=== PATIENT | female | born 1995 | race African-American/Black ===

== ENCOUNTER 2017-10-19 11:36 | Inpatient (IN) | payer MEDICAID ==
[2017-10-19] VITALS (8 sets, daily range): BP systolic 92–126; BP diastolic 44–70
[~2017-10-19] VITALS: Ht 175.3 cm; Wt 90.7 kg
--- NOTE | 2017-10-19 11:43 | Emergency Room Report ---
History of Present Illness General Chief Complaint: To Be Triaged Source: Family Member Present Illness HPI The ER staff was called to the ambulance bay patient was reported to be having seizure in the car that she was brought in The boyfriend reports of the patient for the last several days has been complaining of lower abdominal pain Was seen by primary physician and there was no obvious diagnosis This morning she was found to be having questionable chills/shaking As she was being brought to the ER the shaking became worse This was described as possible seizure Here the patient is shivering Does not follow commands however History of present illness remains limited Allergies: Coded Allergies: No Known Allergies (Unverified , 10/19/17) Patient History Limited by: medical condition Past Medical History: see triage record Pertinent Family History: none Reviewed Nursing Documentation: PMH: Agreed; PSxH: Agreed Review of Systems All Other Systems: limited - Other than the ones mentioned in the history of present illness all others are reviewed however they do stay limited due to the patient's mental status Physical Exam Sp02 EP Interpretation: reviewed, normal General Appearance: moderate distress - Shivering, unresponsive Head: normocephalic, atraumatic Eyes: bilateral eye PERRL, bilateral eye EOMI ENT: normal pharynx Neck: supple Respiratory: lungs clear, normal breath sounds Cardiovascular #1: no gallop, no JVD, no murmur, tachycardia Gastrointestinal: non tender, soft Musculoskeletal: other - Patient does not follow commands at this time, however withdraws from physical stimuli Neurologic: responsive - To physical stimulation Skin: normal color, no rash Lymphatic: no adenopathy Medical Decision Making Diagnostic Impression: Primary Impression: UTI (urinary tract infection) Additional Impressions: Pyelonephritis Sepsis ER Course Upon patient's arrival multiple differentials are considered Patient appears to be having more of an effect of chills When the patient was going to have catheter placement for urine patient stopped shaking and reported that she was able to urinate herself Making the acute seizure less likely Patient's workup reveals UTI With the increased chills and questionable fevers Early pyelonephritis/sepsis considered Patient CT head was negative Provided with IV antibiotics Benzodiazepine at this time admitted for further care Labs Test 10/19/17 11:51 White Blood Count 8.0 K/UL (4.8-10.8) Red Blood Count 4.74 M/UL (4.20-5.40) Hemoglobin 14.5 G/DL (12.0-16.0) Hematocrit 42.9 % (37.0-47.0) Mean Corpuscular Volume 90 FL (80-99) Mean Corpuscular Hemoglobin 30.5 PG (27.0-31.0) Mean Corpuscular Hemoglobin Concent 33.7 G/DL (32.0-36.0) Red Cell Distribution Width 11.1 % (11.6-14.8) Platelet Count 444 K/UL (150-450) Mean Platelet Volume 6.3 FL (6.5-10.1) Neutrophils (%) (Auto) 43.8 % (45.0-75.0) Lymphocytes (%) (Auto) 44.2 % (20.0-45.0) Monocytes (%) (Auto) 8.1 % (1.0-10.0) Eosinophils (%) (Auto) 3.1 % (0.0-3.0) Basophils (%) (Auto) 0.8 % (0.0-2.0) Urine Color Pale yellow Urine Appearance Clear Urine pH 5 (4.5-8.0) Urine Specific [place] 1.020 (1.005-1.035) Urine Protein Negative (NEGATIVE) Urine Glucose (UA) Negative (NEGATIVE) Urine Ketones Negative (NEGATIVE) Urine Occult Blood 2+ (NEGATIVE) Urine Nitrite Negative (NEGATIVE) Urine Bilirubin Negative (NEGATIVE) Urine Urobilinogen Normal MG/DL (0.0-1.0) Urine Leukocyte Esterase 2+ (NEGATIVE) Urine RBC 2-4 /HPF (0 - 2) Urine WBC 5-10 /HPF (0 - 2) Urine Squamous Epithelial Cells Many /LPF (NONE/OCC) Urine Bacteria Few /HPF (NONE) Urine HCG, Qualitative Negative (NEGATIVE) Sodium Level 138 MMOL/L (136-145) Potassium Level 3.8 MMOL/L (3.5-5.1) Chloride Level 103 MMOL/L (98-107) Carbon Dioxide Level 27 MMOL/L (21-32) Anion Gap 8 mmol/L (5-15) Blood Urea Nitrogen 8 mg/dL (7-18) Creatinine 0.9 MG/DL (0.55-1.30) Estimat Glomerular Filtration Rate > 60 mL/min (>60) Glucose Level 102 MG/DL (74-106) Calcium Level 9.6 MG/DL (8.5-10.1) Total Bilirubin 0.8 MG/DL (0.2-1.0) Aspartate Amino Transf (AST/SGOT) 74 U/L (15-37) Alanine Aminotransferase (ALT/SGPT) 284 U/L (12-78) Alkaline Phosphatase 106 U/L (46-116) Total Protein 8.3 G/DL (6.4-8.2) Albumin 4.0 G/DL (3.4-5.0) Globulin 4.3 g/dL Albumin/Globulin Ratio 0.9 (1.0-2.7) Lipase 184 U/L (73-393) Urine Opiates Screen Negative (NEGATIVE) Urine Barbiturates Screen Negative (NEGATIVE) Phencyclidine (PCP) Screen Negative (NEGATIVE) Urine Amphetamines Screen Negative (NEGATIVE) Urine Benzodiazepines Screen Negative (NEGATIVE) Urine Cocaine Screen Negative (NEGATIVE) Urine Marijuana (THC) Screen Negative (NEGATIVE) Serum Alcohol < 3 mg/dL Rhythm Strip Diag. Results EP Interpretation: yes Rate: 110 Rhythm: no PVC's, no ectopy, other - Sinus tach Chest X-Ray Diagnostic Results Chest X-Ray Diagnostic Results : Chest X-Ray Ordered: Yes # of Views/Limited/Complete: 1 View Indication: Chest Pain EP Interpretation: Yes Interpretation: no consolidation, no effusion, no pneumothorax Impression: No acute disease Electronically Signed by: Mat Avitia DO CT/MRI/US Diagnostic Results CT/MRI/US Diagnostic Results : Impression CT abdomen pelvisIMPRESSION: 1. Diverticulosis in the descending colon. Mild associated wall thickening is likelyrelated to underdistention but cannot exclude a low-grade diverticulitis. No adjacent inflammatorystranding, free air, or fluid collection. 2. 2.2 cmright ovarian cyst, likelyphysiologic. 3. Trace free fluid in the pelvic cul-de-sac, also likelyphysiologic. CT head no acute disease Status: improved Disposition: ADMITTED INPATIENT Condition: Serious Mat Avitia DO Oct 19, 2017 11:43
[2017-10-19] MEDS ORDERED: LORazepam Inj 2mg/ml 1ml IV ONE (11:45)
[2017-10-19] MEDS ORDERED: DiphenhydrAMINE 50mg/ml Inj IVP ONE (11:45)
[2017-10-19] MEDS ORDERED: Isovue-300 100ml vial INJ PRN (11:45)
[2017-10-19] MEDS ORDERED: PRINIVIL10 MG ORAL (11:47)
[2017-10-19] MEDS ORDERED: TYLENOL EXTRA500 MG ORAL (11:47)
[2017-10-19 12:05] LABS: APPEARANCE,URINE CLEAR; BASOPHILS % (AUTO) 0.8 % (0.0-2.0); BILIRUBIN, URINE NEGATIVE (NEGATIVE); COLOR,URINE PALE YELLOW; EOSINOPHILS % (AUTO) 3.1 % (0.0-3.0); GLUCOSE, URINE (UA) NEGATIVE (NEGATIVE); HEMATOCRIT 42.9 % (37.0-47.0); HEMOGLOBIN 14.5 G/DL (12.0-16.0); KETONES,URINE NEGATIVE (NEGATIVE); LEUKOCYTE ESTERASE ,URINE 2+ (NEGATIVE); LYMPHOCYTES % (AUTO) 44.2 % (20.0-45.0); MEAN CORPUSCULAR VOLUME 90 FL (80-99); MONOCYTES % (AUTO) 8.1 % (1.0-10.0); NEUTROPHILS % (AUTO) 43.8 % (45.0-75.0); NITRITE,URINE NEGATIVE (NEGATIVE); PH,URINE 5 (4.5-8.0); PLATELET COUNT 444 K/UL (150-450); PROTEIN,URINE NEGATIVE (NEGATIVE); RED BLOOD COUNT 4.74 M/UL (4.20-5.40); RED CELL DISTRIBUTION WIDTH 11.1 % (11.6-14.8); UROBILINOGEN,URINE NORMAL MG/DL (0.0-1.0)
--- NOTE | 2017-10-19 12:11 | Diagnostic Imaging Report ---
EXAM: CT Head Without Intravenous Contrast CLINICAL HISTORY: PAIN TECHNIQUE: Axial computed tomography images of the head/brain without intravenous contrast. CTDI is 70.5 mGy and DLP is 1382 mGy-cm. One or more of the following dose reduction techniques were used: automated exposure control, adjustment of the mA and/or kV according to patient size, use of iterative reconstruction technique. COMPARISON: No relevant prior studies available. FINDINGS: Brain: Unremarkable. No evidence of acute intracranial hemorrhage. No significant white matter disease. No edema. No mass effect or midline shift. Ventricles: Unremarkable. No ventriculomegaly. Bones/joints: Unremarkable. No acute fracture. Soft tissues: Unremarkable. Sinuses: Unremarkable as visualized. No acute sinusitis. Mastoid air cells: Unremarkable as visualized. No mastoid effusion. IMPRESSION: No acute findings.
[2017-10-19 12:41] LABS: ANION GAP 8 mmol/L (5-15); BLOOD UREA NITROGEN 8 mg/dL (7-18); CARBON DIOXIDE 27 MMOL/L (21-32); CHLORIDE 103 MMOL/L (98-107); CREATININE 0.9 MG/DL (0.55-1.30); POTASSIUM 3.8 MMOL/L (3.5-5.1); SODIUM 138 MMOL/L (136-145)
[2017-10-19 12:45] LABS: ALANINE AMINOTRANSFERASE 284 U/L (12-78); ALBUMIN/GLOBULIN RATIO 0.9 (1.0-2.7); ALKALINE PHOSPHATASE 106 U/L (46-116); ASPARTATE AMINO TRANSFERASE 74 U/L (15-37); BILIRUBIN,TOTAL 0.8 MG/DL (0.2-1.0); CALCIUM 9.6 MG/DL (8.5-10.1)
[2017-10-19] MEDS ORDERED: cefTRIAXone 1 GM in NS 55 ML IVPB ONE (12:45)
[2017-10-19] MEDS ORDERED: cefTRIAXone 1 GM in D5W 110 ML IVPB SCH (13:00)
--- NOTE | 2017-10-19 13:23 | Diagnostic Imaging Report ---
EXAM: CT Abdomen and Pelvis With Intravenous Contrast CLINICAL HISTORY: ABD PAIN TECHNIQUE: Axial computed tomography images of the abdomen and pelvis with intravenous contrast. CTDI is 20 mGy and DLP is 1008 3 mGy-cm. One or more of the following dose reduction techniques were used: automated exposure control, adjustment of the mA and/or kV according to patient size, use of iterative reconstruction technique. COMPARISON: No relevant prior studies available. FINDINGS: Lung bases: Unremarkable. No mass. No consolidation. ABDOMEN: Liver: Unremarkable. No mass. Gallbladder and bile ducts: The gallbladder is contracted. No calcified stones. No ductal dilation. Pancreas: Unremarkable. No mass. No ductal dilation. Spleen: Unremarkable. No splenomegaly. Adrenals: Unremarkable. No mass. Kidneys and ureters: Unremarkable. No solid mass. No hydronephrosis. Stomach and bowel: Diverticulosis in the descending colon. Mild associated wall thickening is likely related to underdistention but cannot exclude a low-grade diverticulitis. No adjacent inflammatory stranding, free air, or fluid collection. PELVIS: Appendix: No findings to suggest acute appendicitis. Bladder: Unremarkable. No mass. Reproductive: 2.2 cm right ovarian cyst, likely physiologic. The uterus and left ovary appear unremarkable. ABDOMEN and PELVIS: Intraperitoneal space: Trace free fluid in the pelvic cul-de-sac, also likely physiologic. Bones/joints: No acute fracture. No dislocation. Soft tissues: Unremarkable. Vasculature: Unremarkable. No abdominal aortic aneurysm. Lymph nodes: Unremarkable. No enlarged lymph nodes. IMPRESSION: 1. Diverticulosis in the descending colon. Mild associated wall thickening is likely related to underdistention but cannot exclude a low- grade diverticulitis. No adjacent inflammatory stranding, free air, or fluid collection. 2. 2.2 cm right ovarian cyst, likely physiologic. 3. Trace free fluid in the pelvic cul-de-sac, also likely physiologic.
[2017-10-19] MEDS ORDERED: levETIRAcetam 500mg/NS100ml 100 ML IVPB ONE (14:00)
[2017-10-19] MEDS ORDERED: D5NS 1,000 ML IV SCH (18:00)
[2017-10-19] MEDS ORDERED: LORazepam Inj 2mg/ml 1ml ONE (19:28)
[2017-10-19] MEDS ORDERED: levETIRAcetam 500mg/NS100ml 100 ML IVPB SCH (19:30)
[2017-10-19] MEDS ORDERED: LORazepam Inj 2mg/ml 1ml IV SCH (19:30)
[2017-10-19] MEDS: levETIRAcetam 500mg/NS100ml 100 ML IVPB SCH (21:41)
[2017-10-19] MEDS: Heparin 5000 units/ml inj SUBQ SCH (22:00)
--- NOTE | 2017-10-19 23:15 | History and Physical Report ---
DATE OF ADMISSION: 10/19/2017 REASON FOR ADMISSION: Abdominal pain and seizures. HISTORY OF PRESENT ILLNESS: This is a 22-year-old female, who presented to the emergency room after having a seizure in the car with her boyfriend. Most historical data is obtained from him at bedside at this time and it should be noted that subsequent to my evaluation and discussion with the patient, she did have another seizure which was terminated with IV lorazepam 2 mg. The patient apparently has had abdominal pain for the past week or so. She was seen at an outside ER. She did have negative "workup." Today, her symptoms persisted and she had a seizure in the car. Her boyfriend states that she has had prior seizures a couple of months ago as well as a couple of years ago when she lived at her sister's. She never apparently was treated to his knowledge. He is unaware of any prior seizures, although was not involved with her at that time. PAST MEDICAL HISTORY: Otherwise unremarkable. ALLERGIES: None. MEDICATIONS: Prior to admission, none. FAMILY HISTORY: Noncontributory. SOCIAL HISTORY: Denies smoking, alcohol, or substance abuse. PHYSICAL EXAMINATION: GENERAL: Moderately obese. VITAL SIGNS: Blood pressure 104/60, pulse 98, respiratory rate 22, and afebrile. HEENT: Conjunctivae pink. Sclerae are anicteric. Oropharynx clear. Mucous membranes moist. NECK: Supple. Jugular venous pressure normal. LUNGS: Clear. CARDIAC: Regular. CHEST WALL: Without deformity. ABDOMEN: Soft. No focal tenderness, guarding, or rebound. EXTREMITIES: No clubbing, cyanosis, or edema. SKIN: Without rash, bruise, and mottling. LABORATORY AND DIAGNOSTIC DATA: White count 8, hemoglobin 14.5, and platelets 444,000. Urinalysis with 5-10 white cells and nitrite negative. Sodium 138, potassium 3.8, bicarbonate 27, BUN 8, creatinine 0.9, and glucose 102. AST 74, ALT 284, and alkaline phosphatase 106. Albumin 4. Lipase normal. Urine toxicology screen negative. Urine negative. EKG, sinus tachycardia with no abnormalities. CAT scan of the brain unremarkable. CAT scan of the abdomen, sigmoid diverticulosis and possible diverticulitis. IMPRESSION: 1. Seizure activity, recurrent and witnessed by me to involve shaking that started on the right arm and progressed to involve both extremities and trunk. It was terminated with lorazepam. She had already received 1 g of IV Keppra during the prior 4-hour course in the emergency room in split doses. 2. Transaminitis, unclear etiology. 3. Abdominal pain, possibly due to diverticulitis. 4. Possible urinary tract infection. PLAN: 1. ICU monitoring. 2. Continue Keppra. 3. Consider addition of phenytoin if additional seizure activity noted. 4. Empiric antibiotics. 5. GI and Neurology consultations to follow. 6. EEG will be ordered. Michele Pitts M.D. DR: SLAVA JOB#: [id number] CC:
[2017-10-20] VITALS (24 sets, daily range): BP systolic 91–173; BP diastolic 10–93
[2017-10-20] MEDS: LORazepam Inj 2mg/ml 1ml IV PRN ×6 (03:30→16:31)
[2017-10-20 05:56] LABS: BASOPHILS % (AUTO) 0.9 % (0.0-2.0); EOSINOPHILS % (AUTO) 2.8 % (0.0-3.0); HEMATOCRIT 36.8 % (37.0-47.0); HEMOGLOBIN 12.9 G/DL (12.0-16.0); LYMPHOCYTES % (AUTO) 43.3 % (20.0-45.0); MEAN CORPUSCULAR VOLUME 91 FL (80-99); MONOCYTES % (AUTO) 6.1 % (1.0-10.0); NEUTROPHILS % (AUTO) 46.9 % (45.0-75.0); PLATELET COUNT 350 K/UL (150-450); RED BLOOD COUNT 4.06 M/UL (4.20-5.40); RED CELL DISTRIBUTION WIDTH 11.2 % (11.6-14.8); WHITE BLOOD COUNT 6.5 K/UL (4.8-10.8)
[2017-10-20] MEDS: Heparin 5000 units/ml inj SUBQ SCH ×3 (06:09→22:24)
[2017-10-20 06:24] LABS: ALANINE AMINOTRANSFERASE 193 U/L (12-78); ALBUMIN 3.2 G/DL (3.4-5.0); ALKALINE PHOSPHATASE 83 U/L (46-116); ANION GAP 10 mmol/L (5-15); ASPARTATE AMINO TRANSFERASE 44 U/L (15-37); BILIRUBIN,DIRECT 0.2 MG/DL (0.0-0.3); BILIRUBIN,TOTAL 0.7 MG/DL (0.2-1.0); BLOOD UREA NITROGEN 8 mg/dL (7-18); CALCIUM 8.6 MG/DL (8.5-10.1); CARBON DIOXIDE 24 MMOL/L (21-32); CHLORIDE 106 MMOL/L (98-107); CREATININE 0.9 MG/DL (0.55-1.30); POTASSIUM 3.6 MMOL/L (3.5-5.1); SODIUM 139 MMOL/L (136-145)
[2017-10-20] MEDS: levETIRAcetam 500mg/NS100ml 100 ML IVPB SCH (09:18)
[2017-10-20] MEDS: Cefepime HCl 1 GM in D5W 110 ML IVPB SCH ×2 (09:18→20:45)
--- NOTE | 2017-10-20 09:48 | Diagnostic Imaging Report ---
Indication: Chest pain Technique: One view of the chest Comparison: none Findings: Lungs and pleural spaces are clear. Heart size is normal Impression: No acute process
[2017-10-20] MEDS ORDERED: Sodium Chloride 500ML 500 ML IV ONE (12:30)
[2017-10-20] MEDS ORDERED: Phenytoin 1,000 MG in NS 275 ML IVPB ONE (13:30)
--- NOTE | 2017-10-20 16:00 | Consultation ---
DATE OF CONSULTATION: 10/20/2017 INFECTIOUS DISEASES CONSULTATION CONSULTING PHYSICIAN: Shay Reyes M.D. REFERRING PHYSICIAN: Michele Pitts M.D. REASON FOR CONSULTATION: Urinary tract infection. HISTORY OF PRESENTING ILLNESS: This is a 22-year-old lady with unknown past medical history, who comes in with seizures. She has also been having some nausea and vomiting and an Infectious Diseases consultation has been obtained for antibiotics. She did have a prior history of seizures in the past. PAST MEDICAL HISTORY: History of seizures. MEDICATIONS: As an inpatient, the patient is on potassium, cefepime, Flagyl, subcutaneous heparin, Lorazepam, levetiracetam, Tylenol, and iopamidol. ALLERGIES: No known drug allergies. SOCIAL HISTORY: She does not smoke, drink, or use drugs. FAMILY HISTORY: Unknown. REVIEW OF SYSTEMS: RESPIRATORY: No fever or chills. No cough no shortness of breath. No chest pain. CARDIAC: No chest pain. No palpitations. No dizziness. No syncope. GASTROINTESTINAL: She has nausea and vomiting. No abdominal pain or diarrhea. PHYSICAL EXAMINATION: VITAL SIGNS: Temperature of 98.5 degrees, T-max of 99.1 degrees, pulse of 97, respiratory rate of 18, blood pressure 130/79 and O2 saturation of 97%. HEENT: Pupils equally reactive to light and accommodation. Mouth appears clean without thrush. NECK: Supple. No adenopathy. No JVD. CARDIOVASCULAR: Regular rate and rhythm. No murmurs. LUNGS: Clear to auscultation bilaterally. No crackles. No wheezes. ABDOMEN: Soft and nontender. No organomegaly. EXTREMITIES: No cyanosis, no clubbing, and no edema. LABORATORY AND DIAGNOSTIC DATA: White count 6.5, hemoglobin 12.9, hematocrit 36.8, MCV 91, and platelet count of 350 with neutrophils of 46%. Sodium 139, potassium 3.6, chloride 106, bicarbonate 24, BUN 8, creatinine 0.9 and glucose 107. Calcium 8.6. Total bilirubin 0.7, direct bilirubin 0.2, AST 44, ALT 193 and alkaline phosphatase 83. Ammonia 39. Total protein 6.8. Albumin 3.2. Lipase of 184. RPR is pending. UA showing 5 to 10 white cells, LE 2+. CT abdomen and pelvis showing diverticulosis of the descending colon. Mild associated wall thickening is likely related to under distention, but cannot exclude a low-grade diverticulitis. Right ovarian cysts noted. Trace free fluid in the pelvic cul de sac also physiologic noted. Chest x-ray showing no acute process. CT head showing no acute findings. ASSESSMENT: 1. This is a 22-year-old lady with history of seizures who comes in with seizures and is found to have diverticulitis. 2. Seizures. PLAN: 1. Continue cefepime and Flagyl. 2. We will follow up cultures. I would like to thank, Dr. Pitts, for this consultation. Shay Reyes M.D. DR: TAMI JOB#: [id number] CC: Michele Pitts M.D.
--- NOTE | 2017-10-20 19:26 | Consultation ---
Consult Note Consult Note NEUROLOGY CONSULTATION: Full note dictated #[id number] 22 y/o, RH, BF with H/O seizures since 2017. Her seizures by description are focal seizures with secondary generalization. She has never been on medicines for seizure prophylaxis. She came in with a single seizure and then had a second seizure in Dr. Pitts's presence yesterday. She has since had 2 more seizures. ON EXAM: Problems with orientation, memory, VSF, HCF No focal or lateralizing findings. CT of Brain benign. 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 REC: Keppra 1 G now and then q 12 hours. If patient is seizure -free will discontinue Dilantin. MRI of brain Will review EEG when done. Bhavik Patel M.D., M.S.P.H. BHAVIK PATEL Oct 20, 2017 19:26
[2017-10-20] MEDS ORDERED: Gadavist 7.5mMol/7.5ml vial IV PRN (19:30)
--- NOTE | 2017-10-20 20:15 | Consultation ---
DATE OF CONSULTATION: 10/20/2017 NEUROLOGY CONSULTATION CONSULTING PHYSICIAN: Jose Raul Patel M.D. REQUESTING PHYSICIAN: Michele Pitts M.D. HISTORY: Ms. Jackie Fernandez is a 22-year-old, right-handed, black lady, who does have a past history of seizures that started in 2017. The seizures by description start off as left upper extremity shaking and then she has generalized body movements. The generalized body movements can last for 15 minutes at a time. She says she loses consciousness with all her seizures. She has never been on medicines for seizure prophylaxis. She had her first few seizures in 2017 and then she had a period where she was seizure free for quite sometime. Then on 10/19/2017, she was hospitalized for a single seizure that her boyfriend witnessed while she was in the car. When she was in the emergency room, she had a second seizure, which was witnessed by Dr. Michele Pitts. The seizure consisted of the left upper extremity jerking movements followed by generalized body jerking movements. Since then she has had 2 more seizures in the intensive care unit with 1 seizure lasting for approximately 15 minutes. At this point in time, she feels relatively well. She however is mildly sedated. She did get Ativan following the all the above-mentioned seizures. She was also started on Keppra, but on 250 mg q.12 h. She did get intravenous Keppra in a dose that is unclear. She also got phenytoin 1 G intravenously as a single dose. PAST MEDICAL HISTORY: Significant for seizures that started in 2017. She denies any precipitating factors prior to the seizures starting. FAMILY HISTORY: Nothing significant with no family history of seizures. PERSONAL HISTORY: Home: She lives with a son. 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 Habits: She denies use of alcohol, tobacco, or illicit drugs. PRESENT MEDICATIONS: At home, none. PHYSICAL EXAMINATION: GENERAL: She is a well-developed, well-nourished, obese, black lady, lying in bed, in no acute distress. VITAL SIGNS: Pulse 95/minute, blood pressure 120/66 mmHg, respirations 20/minute, and temperature 98.7 degrees Fahrenheit. HEAD: Normocephalic and atraumatic. EENT: Examination benign. NECK: No neck rigidity was observed. NEUROLOGIC EXAMINATION: MENTAL STATUS EXAMINATION: She was awake and alert. She was oriented to self, hospital, and date. She did not know the name of the hospital. She was able to recall 3/3 words immediately, but could only remember 2/3 words in 1 minute and 3 minutes. She was able to remember presidents, Trump and Obama, but could not remember presidents prior to that. Her mathematical skills were impaired. Her visuospatial function was also impaired. SPEECH: She had no dysarthria. LANGUAGE: She had no aphasia. CRANIAL NERVE EXAMINATION: II: The visual grewal were intact on confrontation testing. III, IV & : The external ocular movements were full and the pupils 3 mm in diameter, equal, round, regular, and reactive to light. V: She had normal facial sensations and the temporales, masseters, and pterygoids functioned normally. VII: She had normal facial expressions and no facial asymmetry. VIII: She was able to hear well bilaterally and had no nystagmus. IX: The palate moved symmetrically on phonation. X: She had no hoarseness of voice. XI: The sternocleidomastoids and trapezii functioned normally. XII: The tongue was in the midline without any fasciculations or atrophy. MOTOR SYSTEM: The tone was normal in all four extremities. Examination of muscle mass revealed no focal wasting. Examination of power revealed grade 5/5 power. SENSORY EXAMINATION: She had intact sensations to pinprick, light touch, and graphesthesia. COORDINATION: She performed well on [id number] testing. REFLEXES: 1+ and bilaterally symmetrical at the biceps, triceps, brachioradialis, and knees. Trace+ at both ankles. The plantar responses were flexor bilaterally. STANCE: She needed support to stand up and was unsteady. GAIT: She walked with support, but was unsteady. DIAGNOSTIC IMPRESSION: 1. Ms. Jackie Fernandez is a 22-year-old, right-handed, black lady, who has had seizures since 2017. The seizures by description start of as focal left upper extremity seizure, which then generalize to involve the entire body and she has been described as having a generalized tonic-clonic seizures. Of note is that, sometimes the seizures can lasts for 15 minutes at a time. 2. On neurological examination at this time, she does have problems with orientation, recent and remote memory, visuospatial function, and higher cognitive function. She however does not demonstrate any focal or lateralizing neurological findings. 3. The CT scan of the brain without contrast is benign. 4. Laboratory data obtained thus far revealed that she has a normal CBC and relatively a normal chemistry panel except for elevated liver enzymes with an AST of 74 and ALT of 284, normal B12, normal folate, normal TSH. Her urinalysis however is abnormal with 2+ leukocyte esterase, 2-4 red blood cells and 5-10 white blood cells per high-power field. 5. The patient's history, neurological examination, and laboratory data are most compatible with focal seizures with secondary generalization with atypical features in that the seizures can last for 15 minutes at a time. There is a high probability that the seizures may have been triggered by her urinary tract infection. RECOMMENDATIONS: 1. Agree with management thus far. 2. Would continue the patient on Keppra, will give her 1 G now and then 1 G q.12 h. 3. If the patient remains seizure free, then we can discontinue the Dilantin. 4. An MRI scan of the brain will be ordered to evaluate the patient for her seizure disorder. 5. An EEG is being performed right now. I shall review it when it is done. 6. Depending on how the patient fares over the next day or so, further recommendations will be given. Thank you for entrusting me with the care of Ms. Fernandez. I shall follow her with you. Jose Raul Patel M.D., M.S.P.H. DR: BRANDON JOB#: [id number]
[2017-10-20] MEDS: levETIRAcetam 1,000mg/NS100ml 100 ML IVPB SCH (21:00)
--- NOTE | 2017-10-20 23:16 | General Progress Note ---
Assessment/Plan Assessment/Plan Assessment - Abdominal pain - diverticulosis, atypical for age - possible diverticulitis, atypical for age - abnormal LFT, ? fatty liver, ? other - Epilepsy Recommendations - agree with empiric antibiotics - follow LFT - check hepatitis serologies - outpatient colonoscopy Subjective Allergies: Coded Allergies: No Known Allergies (Unverified , 10/19/17) Objective Last 24 Hour Vital Signs Date Time Temp Pulse Resp B/P (MAP) Pulse Ox O2 Delivery O2 Flow Rate FiO2 10/20/17 23:00 80 16 112/67 97 Room Air 10/20/17 22:00 85 17 110/69 97 Room Air 10/20/17 21:00 102 15 134/81 99 Room Air 10/20/17 20:00 103 10/20/17 20:00 98.1 92 32 131/74 96 Room Air 98.1 10/20/17 19:00 85 27 121/77 99 Room Air 10/20/17 18:00 95 27 120/66 98 Room Air 10/20/17 17:00 86 24 111/66 97 Room Air 10/20/17 16:00 89 10/20/17 16:00 94 10/20/17 16:00 98.7 99 18 143/93 100 Room Air 98.7 10/20/17 15:00 95 17 134/73 99 Room Air 10/20/17 14:00 97 18 130/80 97 Room Air 10/20/17 13:00 92 16 122/75 99 Room Air 10/20/17 12:00 92 10/20/17 12:00 98.2 98 18 119/73 98 Room Air 98.2 10/20/17 11:00 97 18 130/79 97 Room Air 10/20/17 10:00 92 18 111/68 100 Room Air 10/20/17 09:00 98.5 96 22 121/69 97 Room Air 98.5 10/20/17 08:00 87 17 121/73 100 Room Air 10/20/17 08:00 86 10/20/17 07:00 102 28 126/78 100 Room Air 10/20/17 06:00 110 28 173/10 99 Room Air 10/20/17 05:00 81 15 91/50 99 Room Air 10/20/17 04:00 98.5 72 16 113/58 99 Room Air 98.5 10/20/17 04:00 78 10/20/17 03:00 81 15 91/50 99 Room Air 10/20/17 02:00 72 12 96/45 99 Room Air 10/20/17 01:00 69 14 111/63 97 Room Air 10/20/17 00:00 98.2 82 17 113/63 98 Room Air 98.2 10/20/17 00:00 82 Intake and Output 10/19/17 10/20/17 19:00 07:00 Intake Total 150 ml 950 ml Output Total 0 ml 1475 ml Balance 150 ml -525 ml Intake IV Total 150 ml 950 ml Output Urine Total 0 ml 1475 ml # Voids 1 2 Laboratory Tests 10/20/17 04:16: White Blood Count 6.5, Red Blood Count 4.06L, Hemoglobin 12.9, Hematocrit 36.8L , Mean Corpuscular Volume 91, Mean Corpuscular Hemoglobin 31.7H, Mean Corpuscular Hemoglobin Concent 35.0, Red Cell Distribution Width 11.2L, Platelet Count 350, Mean Platelet Volume 6.4L, Neutrophils (%) (Auto) 46.9, Lymphocytes (%) (Auto) 43.3, Monocytes (%) (Auto) 6.1, Eosinophils (%) (Auto) 2.8, Basophils (%) (Auto) 0.9, Sodium Level 139, Potassium Level 3.6, Chloride Level 106, Carbon Dioxide Level 24, Anion Gap 10, Blood Urea Nitrogen 8, Creatinine 0.9, Estimat Glomerular Filtration Rate > 60, Glucose Level 107H, Calcium Level 8.6, Total Bilirubin 0.7, Direct Bilirubin 0.2, Aspartate Amino Transf (AST/SGOT) 44H, Alanine Aminotransferase (ALT/SGPT) 193H, Alkaline Phosphatase 83, Ammonia 39H, Total Protein 6.8, Albumin 3.2L, Vitamin B12 Level 451, Folate 15.9, Thyroid Stimulating Hormone (TSH) 2.518, Rapid Plasma Reagin [ Pending] Height (Feet): 5 Height (Inches): 9.00 Weight (Pounds): 200 Lorri Gaston MD Oct 20, 2017 23:16
[2017-10-21] VITALS (24 sets, daily range): BP systolic 101–137; BP diastolic 23–88
--- NOTE | 2017-10-21 | Electroencephalogram ---
DATE OF PROCEDURE: 10/20/2017 REQUESTING PHYSICIAN: Michele Pitts M.D. READING PHYSICIAN: Jose Raul Patel M.D. HISTORY: This EEG was performed on a 22-year-old lady with a history of seizures. The patient has had seizures for more than a year, but has not been started on anticonvulsants due to reasons unknown. The patient was hospitalized for a seizure in her boyfriend's car followed by more seizures in the hospital. The seizures are unusual in that they can last for 15 minutes at a time with constant generalized tonic-clonic movements as per her nurse. TECHNICAL NOTE: This EEG was performed on a [employer] with electrodes placed on the scalp according to the International 10-20 system. [id number] and [id number] montages were used. The EEG was technically satisfactory and was performed in the awake and drowsy states. OBSERVATIONS: In the best awake state, the background activity consisted of 8.5-9 Hz alpha activity with a large amount of superimposed beta frequencies. Drowsiness was characterized by dissolution of alpha rhythm and the appearance of slower frequencies in the 5-6 Hz theta range. During the EEG, the patient had one of her "seizures." She started off by having right upper extremity jerking movements followed by left upper extremity jerking movements followed by bilateral upper extremity jerking movements. These jerking movements were associated with EMG and movement artifact, but no EEG correlate. IMPRESSION: Normal awake and drowsy EEG. COMMENT: The abnormal movements that the patient was exhibiting were of a non-epileptic nature. Jose Raul Patel M.D., M.S.P.H. DR: MATHEUS JOB#: [id number] [facility]
--- NOTE | 2017-10-21 00:15 | Progress Note ---
DATE: 10/20/2017 INTERNAL MEDICINE PROGRESS NOTE SUBJECTIVE: The patient remains in the intensive care unit. She had two additional seizures over the course of the last 12 hours. She has been on IV Keppra at 500 mg each dose q.12 h. following her seizures were broken with IV lorazepam doses. The patient remains somnolent, but interactive. OBJECTIVE: VITAL SIGNS: Blood pressure 120/60, pulse 80, respiratory rate 20, afebrile. NECK: Supple. LUNGS: Clear. CARDIAC: Regular. Normal S1, S2. ABDOMEN: Soft and obese. EXTREMITIES: No edema. NEUROLOGIC: There is no tremor at this time. Neurologic consultation was appreciated. The patient's gait is somewhat unsteady. IMPRESSION: 1. Recurring seizures. 2. Abdominal pain and possible colitis. 3. Possible urinary tract infection. 4. Obesity. PLAN: 1. IV Dilantin will be given. She will be continued on Keppra. 2. Final neurologic recommendations will follow. 3. Electrolytes and chemistry panel will be repeated. 4. EEG is pending. 5. CT scan was benign on admission. 6. We will consider MRI as well. Michele Pitts M.D. DR: Helen JOB#: [id number] CC:
[2017-10-21] MEDS: Heparin 5000 units/ml inj SUBQ SCH ×3 (06:02→21:36)
--- NOTE | 2017-10-21 06:30 | Consultation ---
DATE OF CONSULTATION: 10/20/2017 GASTROENTEROLOGY CONSULTATION CONSULTING PHYSICIAN: Lorri Gaston M.D. CHIEF COMPLAINT: I was asked to see this patient by Dr. Michele Pitts for evaluation of abdominal pain and abnormal liver tests. HISTORY OF PRESENT ILLNESS: The patient is a 22-year-old woman, who presents to the emergency room after multiple seizures. She has been admitted to ICU where during my evaluation she was having some seizures. She had received some benzodiazepine and therefore she was sedated and could not offer much history. Reportedly, however, she complained to primary physician that she had some intermittent abdominal pain over a few weeks ago. CT scan of the abdomen and pelvis was done surprisingly showing diverticulosis in her age group and also some thickening perhaps indicative of diverticulitis, although not definitive. There is no prior history of any gastrointestinal issues or workup in this patient's chart. PAST MEDICAL HISTORY: Otherwise negative. ALLERGIES: None. FAMILY HISTORY: Noncontributory. SOCIAL HISTORY: The patient reportedly denied smoking or drinking. REVIEW OF SYSTEMS: Unobtainable. PHYSICAL EXAMINATION: GENERAL: Sedated woman, who is in and out of seizures during my visit in the ICU. HEENT: Normocephalic and atraumatic. NECK: Supple. CHEST: Clear to auscultation. CARDIOVASCULAR: Revealed regular rate. ABDOMEN: Obese. Soft. Good bowel sounds. EXTREMITIES: No edema. LABORATORY AND DIAGNOSTIC DATA: Laboratory data were noted. The patient had an elevated transaminitis profile with AST in 44-74 range and ALT 196-284 range with normal alkaline phosphatase noted. CT scan of the abdomen and pelvis was noted. ASSESSMENT: This patient presents with very unusual finding of diverticulosis and possibly even diverticulitis in this age group. However, it is unusual that the patient should undergo colonoscopy at a later date to confirm these findings. In the meantime, given the remote possibility of diverticulitis it may be reasonable to give a course of broad-spectrum gastrointestinal tract-oriented antibiotics. In addition, the patient has abnormal liver tests of unclear etiology, but fatty liver would obviously be a more likely cause, however, the patient serologies checked at this time to see if another pathology is indicated. I will check hepatitis B and C and further recommendations will be made. RECOMMENDATIONS: 1. Continue empiric broad-spectrum antibiotics. 2. Follow liver tests. 3. Check hepatitis serology. 4. Outpatient colonoscopy. Thank you for asking me to participate in the care of this patient. Lorri Gaston M.D. DR: EMILY JOB#: [id number] CC: PRAMOD
[2017-10-21 06:39] LABS: ALANINE AMINOTRANSFERASE 152 U/L (12-78); ALBUMIN 3.5 G/DL (3.4-5.0); ALBUMIN/GLOBULIN RATIO 0.9 (1.0-2.7); ALKALINE PHOSPHATASE 78 U/L (46-116); ANION GAP 10 mmol/L (5-15); ASPARTATE AMINO TRANSFERASE 27 U/L (15-37); BILIRUBIN,TOTAL 0.7 MG/DL (0.2-1.0); BLOOD UREA NITROGEN 7 mg/dL (7-18); CALCIUM 8.8 MG/DL (8.5-10.1); CARBON DIOXIDE 24 MMOL/L (21-32); CHLORIDE 105 MMOL/L (98-107); CREATININE 0.8 MG/DL (0.55-1.30); POTASSIUM 3.7 MMOL/L (3.5-5.1); SODIUM 139 MMOL/L (136-145)
--- NOTE | 2017-10-21 07:01 | General Progress Note ---
Assessment/Plan Assessment/Plan Assessment - L>R sided abdominal TTP - diverticulosis, atypical for age - possible diverticulitis, atypical for age - abnormal LFT, ? fatty liver, ? other - Epilepsy Recommendations - Empiric antibiotics - follow LFT - check hepatitis serologies - outpatient colonoscopy Subjective Allergies: Coded Allergies: No Known Allergies (Unverified , 10/19/17) Subjective More awake today denies abd pain had an episode of vomiting last night after IV Keppra Objective Last 24 Hour Vital Signs Date Time Temp Pulse Resp B/P (MAP) Pulse Ox O2 Delivery O2 Flow Rate FiO2 10/21/17 06:00 75 16 120/74 97 Room Air 10/21/17 05:00 74 16 137/88 99 Room Air 10/21/17 04:00 97.8 80 20 115/45 97 Room Air 97.8 10/21/17 04:00 79 10/21/17 03:00 80 22 111/59 97 Room Air 10/21/17 02:00 83 20 116/71 96 Room Air 10/21/17 01:00 79 15 123/67 98 Room Air 10/21/17 00:00 81 10/21/17 00:00 97.8 86 16 115/57 98 Room Air 97.8 10/20/17 23:00 80 16 112/67 97 Room Air 10/20/17 22:00 85 17 110/69 97 Room Air 10/20/17 21:00 102 15 134/81 99 Room Air 10/20/17 20:00 103 10/20/17 20:00 98.1 92 32 131/74 96 Room Air 98.1 10/20/17 19:00 85 27 121/77 99 Room Air 10/20/17 18:00 95 27 120/66 98 Room Air 10/20/17 17:00 86 24 111/66 97 Room Air 10/20/17 16:00 89 10/20/17 16:00 94 10/20/17 16:00 98.7 99 18 143/93 100 Room Air 98.7 10/20/17 15:00 95 17 134/73 99 Room Air 10/20/17 14:00 97 18 130/80 97 Room Air 10/20/17 13:00 92 16 122/75 99 Room Air 10/20/17 12:00 92 10/20/17 12:00 98.2 98 18 119/73 98 Room Air 98.2 10/20/17 11:00 97 18 130/79 97 Room Air 10/20/17 10:00 92 18 111/68 100 Room Air 10/20/17 09:00 98.5 96 22 121/69 97 Room Air 98.5 10/20/17 08:00 87 17 121/73 100 Room Air 10/20/17 08:00 86 10/20/17 07:00 102 28 126/78 100 Room Air Intake and Output 10/20/17 10/21/17 19:00 07:00 Intake Total 1360 ml 1670 ml Output Total 1700 ml Balance 1360 ml -30 ml Intake IV Total 1360 ml 1670 ml Output Urine Total 1700 ml # Voids 4 2 # Bowel Movements 1 Laboratory Tests 10/21/17 04:10: Sodium Level [Pending], Potassium Level [Pending], Chloride Level [Pending], Carbon Dioxide Level [Pending], Blood Urea Nitrogen [Pending], Creatinine [ Pending], Estimat Glomerular Filtration Rate [Pending], Glucose Level [Pending] , Calcium Level [Pending], Total Bilirubin [Pending], Aspartate Amino Transf ( AST/SGOT) [Pending], Alanine Aminotransferase (ALT/SGPT) [Pending], Alkaline Phosphatase [Pending], Total Protein [Pending], Albumin [Pending], Globulin [ Pending], Anti-Nuclear Antibody Screen [Pending], Hepatitis B Surface Antigen [ Pending], Hepatitis C Antibody [Pending] Height (Feet): 5 Height (Inches): 9.00 Weight (Pounds): 200 Objective Obese AA woman NCAT supple CTA RRR soft , mild L>R sided TTP (more towards pelvis) no edema Lorri Gaston MD Oct 21, 2017 07:01
[2017-10-21] MEDS: levETIRAcetam 1,000mg/NS100ml 100 ML IVPB SCH ×2 (09:26→20:41)
[2017-10-21] MEDS: Cefepime HCl 1 GM in D5W 110 ML IVPB SCH ×2 (10:25→20:41)
--- NOTE | 2017-10-21 14:09 | Diagnostic Imaging Report ---
Indication: Seizures Technique: sagittal T1 fast spin echo, axial T1 and T2 FLAIR PROPELLER, axial T2 FS PROPELLER, T2* GRE, axial diffusion weighted images,, coronal T2 FLAIR PROPELLER, coronal FSPGR BUSH, post contrast axial and coronal T1 FLAIR PROPELLER images. ADC and exponential ADC maps generated Comparison: Reference is made to CT scan. 10/19/2017 Findings: . No abnormal areas of restricted diffusion to suggest acute infarction. No acute hemorrhage or edema. No mass effect nor midline shift. No abnormal contrast enhancement. Normal size ventricles and extra axial CSF spaces. Visualized orbits and sinuses are unremarkable. Coronal images demonstrate bilateral symmetrical and normal-appearing hippocampi.. Impression: Negative. No evidence of infarct, mass effect, midline shift, hemorrhage, or contrast enhancing lesion.
--- NOTE | 2017-10-21 14:09 | Infectious Diseases Prog Note ---
Assessment/Plan Assessment/Plan antibiotics : cefepime, flagyl A 1. diverticulitis 2. seizures 3. increased LFT improving p 1. continue cefepime, flagyl 2. will follow up cultures Subjective ROS Limited/Unobtainable: Yes Allergies: Coded Allergies: No Known Allergies (Unverified , 10/19/17) Objective Vital Signs Last 24 Hour Vital Signs Date Time Temp Pulse Resp B/P (MAP) Pulse Ox O2 Delivery O2 Flow Rate FiO2 10/21/17 14:00 96 16 117/54 96 Room Air 10/21/17 13:00 98.5 85 18 127/23 96 Room Air 98.5 10/21/17 12:00 96 22 107/69 97 Room Air 10/21/17 12:00 97 10/21/17 10:00 91 18 101/58 98 Room Air 10/21/17 09:00 92 20 107/57 98 Room Air 10/21/17 08:00 98.8 97 23 116/64 98 Room Air 98.8 10/21/17 08:00 79 10/21/17 07:00 79 16 120/74 97 Room Air 10/21/17 06:00 75 16 120/74 97 Room Air 10/21/17 05:00 74 16 137/88 99 Room Air 10/21/17 04:00 97.8 80 20 115/45 97 Room Air 97.8 10/21/17 04:00 79 10/21/17 03:00 80 22 111/59 97 Room Air 10/21/17 02:00 83 20 116/71 96 Room Air 10/21/17 01:00 79 15 123/67 98 Room Air 10/21/17 00:00 81 10/21/17 00:00 97.8 86 16 115/57 98 Room Air 97.8 10/20/17 23:00 80 16 112/67 97 Room Air 10/20/17 22:00 85 17 110/69 97 Room Air 10/20/17 21:00 102 15 134/81 99 Room Air 10/20/17 20:00 103 10/20/17 20:00 98.1 92 32 131/74 96 Room Air 98.1 10/20/17 19:00 85 27 121/77 99 Room Air 10/20/17 18:00 95 27 120/66 98 Room Air 10/20/17 17:00 86 24 111/66 97 Room Air 10/20/17 16:00 89 10/20/17 16:00 94 10/20/17 16:00 98.7 99 18 143/93 100 Room Air 98.7 10/20/17 15:00 95 17 134/73 99 Room Air Height (Feet): 5 Height (Inches): 9.00 Weight (Pounds): 200 Respiratory/Chest: lungs clear Cardiovascular: normal rate, regular rhythm, no gallop/murmur Abdomen: soft, non tender Extremities: no edema Microbiology Date/Time Source Procedure Growth Status 10/19/17 12:00 Blood Blood Culture - Preliminary NO GROWTH AFTER 24 HOURS Resulted 10/19/17 12:00 Blood Blood Culture - Preliminary NO GROWTH AFTER 24 HOURS Resulted Laboratory Tests Test 10/21/17 04:10 Sodium Level 139 MMOL/L (136-145) Potassium Level 3.7 MMOL/L (3.5-5.1) Chloride Level 105 MMOL/L (98-107) Carbon Dioxide Level 24 MMOL/L (21-32) Anion Gap 10 mmol/L (5-15) Blood Urea Nitrogen 7 mg/dL (7-18) Creatinine 0.8 MG/DL (0.55-1.30) Estimat Glomerular Filtration Rate > 60 mL/min (>60) Glucose Level 108 MG/DL (74-106) H Calcium Level 8.8 MG/DL (8.5-10.1) Total Bilirubin 0.7 MG/DL (0.2-1.0) Aspartate Amino Transf (AST/SGOT) 27 U/L (15-37) Alanine Aminotransferase (ALT/SGPT) 152 U/L (12-78) H Alkaline Phosphatase 78 U/L (46-116) Total Protein 7.2 G/DL (6.4-8.2) Albumin 3.5 G/DL (3.4-5.0) Globulin 3.7 g/dL Albumin/Globulin Ratio 0.9 (1.0-2.7) L Anti-Nuclear Antibody Screen Pending Hepatitis B Surface Antigen Pending Hepatitis C Antibody Pending Current Medications Medications (Trade) Dose Ordered Sig/Porfirio Route PRN Reason Start Time Stop Time Status Last Admin Dose Admin Acetaminophen (Tylenol) 650 mg Q6H PRN ORAL Mild Pain/Temp > 100.5 10/19/17 16:45 11/18/17 16:44 Cefepime HCl 1 gm/ Dextrose 110 ml @ 220 mls/hr EVERY 12 HOURS IVPB 10/20/17 09:00 10/27/17 08:59 10/21/17 10:25 Gadobutrol (Gadavist) 7.5 mmol NOW PRN IV Radiology Procedure 10/20/17 19:30 10/22/17 19:29 Heparin Sodium (Porcine) (Heparin 5000 units/ml) 5,000 units EVERY 8 HOURS SUBQ 10/19/17 22:00 11/18/17 21:59 10/21/17 06:02 Levetiracetam 100 ml @ 400 mls/hr Q12HR IVPB 10/20/17 21:00 11/19/17 20:59 10/21/17 09:26 Lorazepam (Ativan 2mg/ml 1ml) 2 mg PRN PRN IV For Seizures 10/19/17 19:30 10/26/17 19:29 10/20/17 16:31 Metronidazole 100 ml @ 100 mls/hr Q8HR IVPB 10/19/17 22:00 10/26/17 21:59 10/21/17 05:37 Potassium Chloride 20 meq/ Dextrose/Sodium Chloride 1,010 ml @ 125 mls/hr Q8H5M IV 10/20/17 12:30 11/19/17 12:29 10/21/17 04:40 CHAITANYA LOPEZ Oct 21, 2017 14:09
--- NOTE | 2017-10-21 16:20 | Neurology Progress Note ---
Interim History Interim History Interim History Ms. Fernandez feels well. She has had no further seizures since yesterday. She feels that her mind has cleared up. She feels that her strength is normal. She is steady on her feet when she walks. She denies any new neurologic symptoms. Review of Systems Neuro Review of Systems Benign. Objective Physical Exam Last Vital Signs Date Time Temp Pulse Resp B/P (MAP) Pulse Ox O2 Delivery O2 Flow Rate FiO2 10/21/17 15:00 93 28 114/61 96 Room Air 10/21/17 13:00 98.5 98.5 Laboratory Tests Test 10/21/17 04:10 Sodium Level 139 MMOL/L (136-145) Potassium Level 3.7 MMOL/L (3.5-5.1) Chloride Level 105 MMOL/L (98-107) Carbon Dioxide Level 24 MMOL/L (21-32) Anion Gap 10 mmol/L (5-15) Blood Urea Nitrogen 7 mg/dL (7-18) Creatinine 0.8 MG/DL (0.55-1.30) Estimat Glomerular Filtration Rate > 60 mL/min (>60) Glucose Level 108 MG/DL (74-106) H Calcium Level 8.8 MG/DL (8.5-10.1) Total Bilirubin 0.7 MG/DL (0.2-1.0) Aspartate Amino Transf (AST/SGOT) 27 U/L (15-37) Alanine Aminotransferase (ALT/SGPT) 152 U/L (12-78) H Alkaline Phosphatase 78 U/L (46-116) Total Protein 7.2 G/DL (6.4-8.2) Albumin 3.5 G/DL (3.4-5.0) Globulin 3.7 g/dL Albumin/Globulin Ratio 0.9 (1.0-2.7) L Anti-Nuclear Antibody Screen Pending Hepatitis B Surface Antigen Pending Hepatitis C Antibody Pending Neurologic Exam Objective PHYSICAL EXAMINATION: GENERAL: She is a well-developed, well-nourished, obese, black lady, lying in bed, in no acute distress. HEAD: Normocephalic and atraumatic. EENT: Examination benign. NECK: No neck rigidity was observed. NEUROLOGIC EXAMINATION: MENTAL STATUS EXAMINATION: She was awake and alert. She was oriented to self, hospital, and date. She did not know the name of the hospital. She was able to recall 3/3 words immediately, and could remember them in 1 minute and 3 minutes. She was able to remember presidents, Trump and Obama, but could not remember presidents prior to that. Her mathematical skills were impaired. Her visuospatial function was also impaired. SPEECH: She had no dysarthria. LANGUAGE: She had no aphasia. CRANIAL NERVE EXAMINATION: II: The visual grewal were intact on confrontation testing. III, IV & : The external ocular movements were full and the pupils 3 mm in diameter, equal, round, regular, and reactive to light. V: She had normal facial sensations and the temporales, masseters, and pterygoids functioned normally. VII: She had normal facial expressions and no facial asymmetry. VIII: She was able to hear well bilaterally and had no nystagmus. IX: The palate moved symmetrically on phonation. X: She had no hoarseness of voice. XI: The sternocleidomastoids and trapezii functioned normally. XII: The tongue was in the midline without any fasciculations or atrophy. MOTOR SYSTEM: The tone was normal in all four extremities. Examination of muscle mass revealed no focal wasting. Examination of power revealed G 5/5 power. SENSORY EXAMINATION: She had intact sensations to pinprick, light touch, and graphesthesia. COORDINATION: She performed well on [id number] testing. REFLEXES: 1+ and bilaterally symmetrical at the biceps, triceps, brachioradialis , and knees. Trace+ at both ankles. The plantar responses were flexor bilaterally. STANCE: She stood up independently. GAIT: She walked well independently. Impression/Recommendations Diagnostic Impression 1. Ms. Jackie Fernandez is a 22-year-old, right-handed, black lady, who has had seizures since 2017. The seizures by description start of as focal left upper extremity seizure, which then generalize to involve the entire body and she has been described as having a generalized tonic-clonic seizures. Of note is that, sometimes the seizures can lasts for 15 minutes at a time. 2. She feels well. She has had no further seizures since yesterday. She feels that her mind has cleared up. She feels that her strength is normal. She is steady on her feet when she walks. She denies any new neurologic symptoms. 3. On neurological examination at this time, she does have problems with orientation, memory, visuospatial function, and higher cognitive function. She however does not demonstrate any focal or lateralizing neurological findings. 4. The CT scan of the brain without contrast is benign. 5. Laboratory data obtained thus far revealed that she has a normal CBC and relatively a normal chemistry panel except for elevated liver enzymes with an AST of 74 and ALT of 284, normal B12, normal folate, normal TSH. Her urinalysis however is abnormal with 2+ leukocyte esterase, 2-4 red blood cells and 5-10 white blood cells per high-power field. 6. The EEG done on 10/20/17 revealed an event that was typical of her usual seizure but reveled no EEG correlate. 7. The MRI of the brain without and with contrast revealed a normal brain. 8. 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 Recommendations 1. Continue present management. 2. Continue the patient on Keppra 1 G q 12 h. 3. Follow up with neurologist on regular basis. 4. No driving for at least next 3 months. Bhavik Patel M.D., M.S.P.[place]. BHAVIK PATEL Oct 21, 2017 16:20
[2017-10-21] MEDS ORDERED: D5NS 1000ml IV ONE (20:50)
[2017-10-21] MEDS ORDERED: Tubing IV Secondary IV ONE ×2 (20:50→20:53)
[2017-10-21] MEDS ORDERED: NS 275ml ONE (20:53)
[2017-10-22] VITALS (16 sets, daily range): BP systolic 85–135; BP diastolic 36–76
--- NOTE | 2017-10-22 04:00 | Progress Note ---
DATE: 10/21/2017 INTERNAL MEDICINE PROGRESS NOTE SUBJECTIVE: The patient feels well. No new seizures. Her mind is clear. Her strength is normal. She is able to ambulate, although with some unsteadiness noted. OBJECTIVE: VITAL SIGNS: Blood pressure 114/61, pulse 93, and respiratory rate 28. NECK: Supple. LUNGS: Clear. CARDIAC: Regular. Normal S1, S2. ABDOMEN: Soft. No edema. DIAGNOSTIC DATA: The EEG was noted and there was no abnormality noted with a seizure. IMPRESSION: 1. Nonepileptic seizures. 2. Urinary tract infection. 3. Possible colitis. 4. Transaminitis, improved. PLAN: 1. Followup hepatitis serologies. 2. Empiric antibiotics. 3. Discontinue Keppra. 4. Discontinue Dilantin. 5. Mobilize. Michele Pitts M.D. DR: INÉS JOB#: [id number] CC:
[2017-10-22] MEDS: Heparin 5000 units/ml inj SUBQ SCH ×4 (05:37→21:30)
[2017-10-22] MEDS: Cefepime HCl 1 GM in D5W 110 ML IVPB SCH ×2 (09:16→21:27)
[2017-10-22] MEDS: levETIRAcetam 1,000mg/NS100ml 100 ML IVPB SCH (09:17)
--- NOTE | 2017-10-22 10:28 | Infectious Diseases Prog Note ---
Assessment/Plan Assessment/Plan A 1. diverticulitis, diverticulosis 2. seizures 3. increased LFT improving p 1. continue cefepime, Flagyl 2. will follow up cultures Subjective ROS Limited/Unobtainable: No Constitutional: Reports: no symptoms HEENT: Reports: no symptoms Respiratory: Reports: no symptoms Cardiovascular: Reports: no symptoms Genitourinary: Reports: no symptoms Neurologic: Reports: no symptoms Skin: Reports: other - developed bruise at site of heparin injection in abdomen Allergies: Coded Allergies: No Known Allergies (Unverified , 10/19/17) Objective Vital Signs Last 24 Hour Vital Signs Date Time Temp Pulse Resp B/P (MAP) Pulse Ox O2 Delivery O2 Flow Rate FiO2 10/22/17 09:00 78 19 118/67 97 Room Air 10/22/17 08:00 88 10/22/17 08:00 98.5 82 19 107/63 98 Room Air 98.5 10/22/17 07:00 73 10 111/57 98 Room Air 10/22/17 06:00 60 11 116/68 99 Room Air 10/22/17 05:00 65 15 105/56 98 Room Air 10/22/17 04:00 70 10/22/17 04:00 98.4 67 18 108/68 97 Room Air 98.4 10/22/17 03:00 79 12 96/45 96 Room Air 10/22/17 02:00 70 12 97/44 96 Room Air 10/22/17 01:00 86 28 85/36 99 Room Air 10/22/17 00:00 80 16 114/70 97 Room Air 10/22/17 00:00 81 10/21/17 23:00 98.4 79 15 114/60 98 Room Air 98.4 10/21/17 22:00 80 16 103/49 95 Room Air 10/21/17 21:00 83 17 111/64 97 Room Air 10/21/17 20:00 82 25 118/65 98 Room Air 10/21/17 20:00 86 10/21/17 19:00 99.2 100 24 110/58 97 Room Air 99.2 10/21/17 18:00 84 17 135/69 96 Room Air 10/21/17 17:00 78 12 134/79 96 Room Air 10/21/17 16:00 98.5 91 18 126/77 96 Room Air 98.5 10/21/17 16:00 86 10/21/17 15:00 93 28 114/61 96 Room Air 10/21/17 14:00 96 16 117/54 96 Room Air 10/21/17 13:00 98.5 85 18 127/23 96 Room Air 98.5 10/21/17 12:00 96 22 107/69 97 Room Air 10/21/17 12:00 97 Height (Feet): 5 Height (Inches): 9.00 Weight (Pounds): 200 HEENT: mucous membranes moist Respiratory/Chest: lungs clear Cardiovascular: normal rate Abdomen: soft, non tender Extremities: no edema Neurologic/Psychiatric: alert, oriented x 3, responsive Microbiology Date/Time Source Procedure Growth Status 10/19/17 12:00 Blood Blood Culture - Preliminary NO GROWTH AFTER 48 HOURS Resulted 10/19/17 12:00 Blood Blood Culture - Preliminary NO GROWTH AFTER 48 HOURS Resulted Current Medications Medications (Trade) Dose Ordered Sig/Porfirio Route PRN Reason Start Time Stop Time Status Last Admin Dose Admin Acetaminophen (Tylenol) 650 mg Q6H PRN ORAL Mild Pain/Temp > 100.5 10/19/17 16:45 11/18/17 16:44 10/21/17 19:37 Cefepime HCl 1 gm/ Dextrose 110 ml @ 220 mls/hr EVERY 12 HOURS IVPB 10/20/17 09:00 10/27/17 08:59 10/22/17 09:16 Gadobutrol (Gadavist) 7.5 mmol NOW PRN IV Radiology Procedure 10/20/17 19:30 10/22/17 19:29 Heparin Sodium (Porcine) (Heparin 5000 units/ml) 5,000 units EVERY 8 HOURS SUBQ 10/19/17 22:00 11/18/17 21:59 10/22/17 05:37 Levetiracetam 100 ml @ 400 mls/hr Q12HR IVPB 10/20/17 21:00 11/19/17 20:59 10/22/17 09:17 Lorazepam (Ativan 2mg/ml 1ml) 2 mg PRN PRN IV For Seizures 10/19/17 19:30 10/26/17 19:29 10/20/17 16:31 Metronidazole 100 ml @ 100 mls/hr Q8HR IVPB 10/19/17 22:00 10/26/17 21:59 10/22/17 05:36 Potassium Chloride 20 meq/ Dextrose/Sodium Chloride 1,010 ml @ 125 mls/hr Q8H5M IV 10/20/17 12:30 11/19/17 12:29 10/22/17 03:49 Zenon Mullins MD Oct 22, 2017 10:28
[2017-10-22] MEDS ORDERED: Gadavist 7.5mMol/7.5ml vial IV PRN (14:00)
[2017-10-22] MEDS ORDERED: metroNIDAZOLE 500mg tab ORAL SCH (14:00)
[2017-10-22] MEDS: metroNIDAZOLE 500mg tab ORAL SCH ×2 (14:00→21:27)
[2017-10-22] MEDS ORDERED: LORazepam Inj 2mg/ml 1ml IV PRN (14:00)
--- NOTE | 2017-10-22 15:09 | Neurology Progress Note ---
Interim History Interim History ROS Limited/Unobtainable: No Interim History Ms. Fernandez feels well. She was moved out of the ICU this morning. She continues to be seizure-free. She feels that her mind has cleared up. She feels that her strength is normal. She is steady on her feet when she walks. She denies any new neurologic symptoms. She is eager to go home. Review of Systems Neuro Review of Systems Benign. Objective Physical Exam Last Vital Signs Date Time Temp Pulse Resp B/P (MAP) Pulse Ox O2 Delivery O2 Flow Rate FiO2 10/22/17 13:00 77 19 119/53 99 Room Air 10/22/17 12:00 98.6 98.6 Neurologic Exam Objective PHYSICAL EXAMINATION: GENERAL: She is a well-developed, well-nourished, obese, black lady, lying in bed, in no acute distress. HEAD: Normocephalic and atraumatic. EENT: Examination benign. NECK: No neck rigidity was observed. NEUROLOGIC EXAMINATION: MENTAL STATUS EXAMINATION: She was awake and alert. She was oriented to self, [facility], and date. She was able to recall 3/3 words immediately, and could remember them in 1 minute and 3 minutes. She was able to remember presidents, Trump through Martin Angel, but could not remember presidents prior to that. Her mathematical skills were impaired. Her visuospatial function was also impaired. SPEECH: She had no dysarthria. LANGUAGE: She had no aphasia. CRANIAL NERVE EXAMINATION: II: The visual grewal were intact on confrontation testing. III, IV & : The external ocular movements were full and the pupils 3 mm in diameter, equal, round, regular, and reactive to light. V: She had normal facial sensations and the temporales, masseters, and pterygoids functioned normally. VII: She had normal facial expressions and no facial asymmetry. VIII: She was able to hear well bilaterally and had no nystagmus. IX: The palate moved symmetrically on phonation. X: She had no hoarseness of voice. XI: The sternocleidomastoids and trapezii functioned normally. XII: The tongue was in the midline without any fasciculations or atrophy. MOTOR SYSTEM: The tone was normal in all four extremities. Examination of muscle mass revealed no focal wasting. Examination of power revealed G 5/5 power. SENSORY EXAMINATION: She had intact sensations to pinprick, light touch, and graphesthesia. COORDINATION: She performed well on [id number] testing. REFLEXES: 1+ and bilaterally symmetrical at the biceps, triceps, brachioradialis , and knees. Trace+ at both ankles. The plantar responses were flexor bilaterally. STANCE: She stood up independently. GAIT: She walked well independently. Impression/Recommendations Diagnostic Impression 1. Ms. Jackie Fernandez is a 22-year-old, right-handed, black lady, who has had seizures since 2017. The seizures by description start of as focal left upper extremity seizure, which then generalize to involve the entire body and she has been described as having a generalized tonic-clonic seizures. Of note is that, sometimes the seizures can lasts for 15 minutes at a time. 2. She feels well. She was moved out of the ICU this morning. She continues to be seizure-free. She feels that her mind has cleared up. She feels that her strength is normal. She is steady on her feet when she walks. She denies any new neurologic symptoms. She is eager to go home. 3. On neurological examination at this time, she does have problems with memory , visuospatial function, and higher cognitive function. She however does not demonstrate any focal or lateralizing neurological findings. 4. The CT scan of the brain without contrast is benign. 5. Laboratory data obtained thus far revealed that she has a normal CBC and relatively a normal chemistry panel except for elevated liver enzymes with an AST of 74 and ALT of 284, normal B12, normal folate, normal TSH. Her urinalysis however is abnormal with 2+ leukocyte esterase, 2-4 red blood cells and 5-10 white blood cells per high-power field. 6. The EEG done on 10/20/17 revealed an event that was typical of her usual seizure but reveled no EEG correlate. 7. The MRI of the brain without and with contrast revealed a normal brain. 8. 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 Recommendations 1. Continue present management. 2. Continue the patient on Keppra 1 G q 12 h. 3. Follow up with neurologist on regular basis. 4. No driving for at least next 3 months. Bhavik K. Jorge, M.D., [place]. BHAVIK RENE Oct 22, 2017 15:09
[2017-10-22] MEDS ORDERED: levETIRAcetam 1,000mg/NS100ml 100 ML IVPB SCH (21:00)
--- NOTE | 2017-10-22 23:57 | General Progress Note ---
Assessment/Plan Assessment/Plan Assessment - L>R sided abdominal TTP - resolving - diverticulosis, atypical for age - possible diverticulitis, atypical for age - abnormal LFT, ? fatty liver, ? other - Epilepsy Recommendations - Empiric antibiotics - follow LFT - check hepatitis serologies - negative - outpatient colonoscopy Subjective Allergies: Coded Allergies: No Known Allergies (Unverified , 10/19/17) Subjective More awake no abdominal complaints today Objective Last 24 Hour Vital Signs Date Time Temp Pulse Resp B/P (MAP) Pulse Ox O2 Delivery O2 Flow Rate FiO2 10/22/17 20:00 76 10/22/17 20:00 97.9 76 20 135/76 98 Room Air 97.9 10/22/17 16:00 98.2 78 20 111/73 98 Room Air 98.2 10/22/17 15:19 91 10/22/17 13:00 77 19 119/53 99 Room Air 10/22/17 12:00 98.6 74 15 110/61 98 Room Air 98.6 10/22/17 12:00 74 10/22/17 11:00 79 15 124/57 98 Room Air 10/22/17 10:00 73 19 124/66 97 Room Air 10/22/17 09:00 78 19 118/67 97 Room Air 10/22/17 08:00 88 10/22/17 08:00 98.5 82 19 107/63 98 Room Air 98.5 10/22/17 07:00 73 10 111/57 98 Room Air 10/22/17 06:00 60 11 116/68 99 Room Air 10/22/17 05:00 65 15 105/56 98 Room Air 10/22/17 04:00 70 10/22/17 04:00 98.4 67 18 108/68 97 Room Air 98.4 10/22/17 03:00 79 12 96/45 96 Room Air 10/22/17 02:00 70 12 97/44 96 Room Air 10/22/17 01:00 86 28 85/36 99 Room Air 10/22/17 00:00 80 16 114/70 97 Room Air 10/22/17 00:00 81 Intake and Output 10/21/17 10/22/17 19:00 07:00 Intake Total 2090 ml 1740 ml Output Total 1200 ml 2400 ml Balance 890 ml -660 ml Intake Oral 120 ml 240 ml IV Total 1970 ml 1500 ml Output Urine Total 1200 ml 2400 ml # Voids 6 4 Height (Feet): 5 Height (Inches): 9.00 Weight (Pounds): 200 Objective Obese AA woman NCAT supple CTA RRR soft , nontender no edema Lorri Gaston MD Oct 22, 2017 23:57
[2017-10-23] VITALS: BP 110/67
--- NOTE | 2017-10-23 00:45 | Progress Note ---
DATE: 10/22/2017 CARDIOLOGY PROGRESS NOTE SUBJECTIVE: The patient has not had any seizures. OBJECTIVE: VITAL SIGNS: Blood pressure 110/61, heart rate 74, and respiratory rate 15. LUNGS: Clear. CARDIAC: Regular. ABDOMEN: Soft. No edema. NEUROLOGIC: Mentation is clear. Appetite good. IMPRESSION: 1. Non-epileptic seizures. 2. Rehydrated. 3. Obesity. 4. Glucose intolerance. 5. Diverticulitis, clinically improved. 6. Transaminitis, resolving. PLAN: 1. Transition from IV to oral Keppra. 2. No additional anti-seizure therapy per neurologist, Dr. Patel. 3. Discontinue IV fluids. 4. Continue antibiotics at this time. 5. Discharge planning. Michele Pitts M.D. DR: SLAVA JOB#: [id number] CC:
[2017-10-23 04:00] VITALS: BP 103/52
[2017-10-23] MEDS: Heparin 5000 units/ml inj SUBQ SCH ×2 (06:44→14:06)
[2017-10-23] MEDS: metroNIDAZOLE 500mg tab ORAL SCH ×2 (06:45→14:05)
[2017-10-23] MEDS: Cefepime HCl 1 GM in D5W 110 ML IVPB SCH (08:31)
[2017-10-23 08:58] VITALS: BP 108/49
--- NOTE | 2017-10-23 10:26 | Neurology Progress Note ---
Interim History Interim History Interim History Ms. Fernandez feels well. She continues to be seizure-free. She feels that her mind is clear. She feels that her strength is normal. She is steady on her feet when she walks. She denies any new neurologic symptoms. She is tolerating her medicine well. She is eager to go home. Review of Systems Neuro Review of Systems Benign. Objective Physical Exam Last Vital Signs Date Time Temp Pulse Resp B/P (MAP) Pulse Ox O2 Delivery O2 Flow Rate FiO2 10/23/17 08:58 98.8 72 20 108/49 98 Room Air 98.8 Neurologic Exam Objective PHYSICAL EXAMINATION: GENERAL: She is a well-developed, well-nourished, obese, black lady, lying in bed, in no acute distress. HEAD: Normocephalic and atraumatic. EENT: Examination benign. NECK: No neck rigidity was observed. NEUROLOGIC EXAMINATION: MENTAL STATUS EXAMINATION: She was awake and alert. She was oriented to self, [facility], and date. She was able to recall 3/3 words immediately, and could remember them in 1 minute and 3 minutes. She was able to remember presidents, Trump through Martin Angel, but could not remember presidents prior to that. Her mathematical skills were impaired. Her visuospatial function was also impaired. SPEECH: She had no dysarthria. LANGUAGE: She had no aphasia. CRANIAL NERVE EXAMINATION: II: The visual grewal were intact on confrontation testing. III, IV & : The external ocular movements were full and the pupils 3 mm in diameter, equal, round, regular, and reactive to light. V: She had normal facial sensations and the temporales, masseters, and pterygoids functioned normally. VII: She had normal facial expressions and no facial asymmetry. VIII: She was able to hear well bilaterally and had no nystagmus. IX: The palate moved symmetrically on phonation. X: She had no hoarseness of voice. XI: The sternocleidomastoids and trapezii functioned normally. XII: The tongue was in the midline without any fasciculations or atrophy. MOTOR SYSTEM: The tone was normal in all four extremities. Examination of muscle mass revealed no focal wasting. Examination of power revealed G 5/5 power. SENSORY EXAMINATION: She had intact sensations to pinprick, light touch, and graphesthesia. COORDINATION: She performed well on [id number] testing. REFLEXES: 1+ and bilaterally symmetrical at the biceps, triceps, brachioradialis , and knees. Trace+ at both ankles. The plantar responses were flexor bilaterally. STANCE: She stood up independently. GAIT: She walked well independently. Impression/Recommendations Diagnostic Impression 1. Ms. Jackie Fernandez is a 22-year-old, right-handed, black lady, who has had seizures since 2017. The seizures by description start of as focal left upper extremity seizure, which then generalize to involve the entire body and she has been described as having a generalized tonic-clonic seizures. Of note is that, sometimes the seizures can lasts for 15 minutes at a time. 2. She feels well. She continues to be seizure-free. The mind is clear. She feels that her strength is normal. She is steady on her feet when she walks. She denies any new neurologic symptoms. She is eager to go home. 3. On neurological examination at this time, she does have problems with memory , visuospatial function, and higher cognitive function. She however does not demonstrate any focal or lateralizing neurological findings. 4. The CT scan of the brain without contrast is benign. 5. Laboratory data obtained thus far revealed that she has a normal CBC and relatively a normal chemistry panel except for elevated liver enzymes with an AST of 74 and ALT of 284, normal B12, normal folate, normal TSH. Her urinalysis however is abnormal with 2+ leukocyte esterase, 2-4 red blood cells and 5-10 white blood cells per high-power field. 6. The EEG done on 10/20/17 revealed an event that was typical of her usual seizure but reveled no EEG correlate. 7. The MRI of the brain without and with contrast revealed a normal brain. 8. 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 Recommendations 1. Continue present management. 2. Continue the patient on a single anticonvulsant - Keppra 1 G q 12 h. 3. Follow up with neurologist on regular basis. 4. No driving for at least next 3 months. Bhavik Patel M.D., M.S.P.BHAVIK STANFORD Oct 23, 2017 10:26
[2017-10-23 12:00] VITALS: BP 121/70
--- NOTE | 2017-10-23 12:28 | General Progress Note ---
Assessment/Plan Assessment/Plan Assessment - L>R sided abdominal TTP - resolved - diverticulosis, atypical for age - possible diverticulitis, atypical for age - resolving - Resolving LFT - ? passed stone - Epilepsy Recommendations - Empiric antibiotics - follow LFT - check hepatitis serologies - negative - outpatient colonoscopy Subjective Allergies: Coded Allergies: No Known Allergies (Unverified , 10/19/17) Subjective More awake no abdominal complaints today Objective Last 24 Hour Vital Signs Date Time Temp Pulse Resp B/P (MAP) Pulse Ox O2 Delivery O2 Flow Rate FiO2 10/23/17 08:58 98.8 72 20 108/49 98 Room Air 98.8 10/23/17 08:00 70 10/23/17 04:00 72 10/23/17 04:00 98.8 72 20 103/52 98 Room Air 98.8 10/23/17 00:00 97.9 63 20 110/67 98 Room Air 97.9 10/23/17 00:00 76 10/22/17 20:00 76 10/22/17 20:00 97.9 76 20 135/76 98 Room Air 97.9 10/22/17 16:00 98.2 78 20 111/73 98 Room Air 98.2 10/22/17 15:19 91 10/22/17 13:00 77 19 119/53 99 Room Air Intake and Output 10/22/17 10/23/17 19:00 07:00 Intake Total 1480 ml Output Total 1400 ml Balance 80 ml Intake Oral 360 ml IV Total 1120 ml Output Urine Total 1400 ml # Voids 7 # Bowel Movements 4 1 Height (Feet): 5 Height (Inches): 9.00 Weight (Pounds): 200 Objective Obese AA woman NCAT supple CTA RRR soft , nontender no edema Lorri Gaston MD Oct 23, 2017 12:28
[2017-10-23 16:00] VITALS: BP 113/68
--- NOTE | 2017-10-24 02:16 | Consultation ---
DATE OF CONSULTATION: 10/23/2017 HISTORY OF PRESENT ILLNESS: The patient is a 22-year-old female, who is admitted with a chief complaint of seizure. The patient was admitted to the ICU and was under supervision. Neurology was consulted. The EEG and other tests have been negative for the seizure activity. During evaluation, the patient was superficial, calm, and cooperative with the examination. Denied depressive, psychotic, manic, or anxiety symptoms. She stated that she has a 2-year-old at home. She denied having any stressors in her life including her relationship with her boyfriend, who is the father of her toddler. She also stated that her toddler boy is "easy going." The patient denied any financial issues. She is currently unemployed. Her boyfriend is supporting the family. PAST PSYCHIATRIC HISTORY: She denied any history of psychiatric hospitalization, psychiatric illness, or taking psychotropic medications. PAST MEDICAL HISTORY: She denied any history of medical issues. She was overweight and there is no history of epilepsy or seizure disorder. ALLERGIES: No known drug allergies. SUBSTANCE ABUSE HISTORY: She denied any history of illicit drug use or alcohol. MENTAL STATUS EXAMINATION: Alert and oriented to times self, place, and situation. Mood is neutral. Affect is full range. Congruent with mood. Thought process was concrete. Thought content, no suicidal or homicidal ideations. No delusions. No auditory or visual hallucinations. Cognition was intact. Insight and judgment is fair. ASSESSMENT AND PLAN: The patient is not currently presenting with any symptoms that are consistent with somatoform disorder or including conversion disorder. The patient is possibly having secondary gain by insisting that she has seizure or presenting with symptoms that are consistent with seizure. The patient may have some anxiety, however, it is not to a degree that may cause seizure. No medication is indicated at this time. Steven Escudero M.D. DR: AMANDA JOB#: [id number] CC:
--- NOTE | 2017-10-24 10:45 | Discharge Summary ---
Discharge Summary Discharge Summary _ DATE OF ADMISSION: 10/19/2017 DATE OF DISCHARGE: 10/23/2017 CONSULTANTS: Dr. Jose Raul Gaston BRIEF HOSPITAL COURSE: Patient is a 22-year-old -[place] female, presented to the emergency room after having a seizure in the car with her boyfriend. She apparently had been complaining of abdominal pain for the past week or so. She has no medical history. On evaluation at ED, vital signs were stable. There was no leukocytosis. Urinalysis with 5-10 WBC, 2-4 RBC, 2+ leukocyte esterase and few bacteria. Urine toxicology was negative. Serum alcohol level was less than 3. Urine HCG negative. She was sinus tachycardic on the monitor. She had a chest x-ray done that was negative. CT of the head with no acute disease. CT of the abdomen and pelvis with diverticulosis in the descending colon possible diverticulitis. She had a witnessed seizure that was terminated with lorazepam. She was then admitted to ICU and was placed on seizure precautions. She was given IV Keppra. Neuro evaluation was done. There was no focal or lateralizing neurological findings. She had normal CBC and relatively normal chemistry panel , however liver enzymes were elevated. Folate was normal, thyroid stimulating hormone normal. She given Dilantin. She was continued on Keppra, dose was increased to 1 g every 12 hours. She underwent an EEG. During the test she had her typical usual seizure event however there was no EEG findings to correlate. MRI of the brain with and without contrast revealed a normal brain. She was continued on cefepime and Flagyl. Patient has diverticulosis and possible diverticulitis which is atypical for age. She had elevated LFTs, hepatitis panel was negative. OTIS and syphilis screen were negative. LFTs down trended. Psychiatric evaluation was done. She denied any stressors in her life including her relationship with her boyfriend, who is the father of her toddler. She denied any financial issues. The patient did not present with any symptoms that are consistent with somatoform disorder or conversion disorder. Patient may have some anxiety, however, it is not to a degree that may cause seizures. No medications indicated. There was no further recurrence of symptoms, patient was stable and was cleared for discharge home. FINAL DIAGNOSES: Nonepileptic seizures Dehydration Obesity Diverticulitis, clinically improved Transaminitis, resolving Glucose intolerance Urinary tract infection DISPOSITION: Patient was discharged home. DISCHARGE INSTRUCTIONS: Follow up with PCP in a week. Follow-up with neurology on a regular basis. No driving for the next 3 months. I have been assigned to dictate discharge summary on this account, and I was not involved in the patient's management. Sherley Clemons NP Oct 24, 2017 10:45
== END 2017-10-23 20:04 | disposition home or self-care (01) | DRG 53 ==
LOC: EMR 12:26 → EDBEDREQ 13:51 → 2E 14:08 → ICU 19:46 → 2E 10-22 13:45
DX: R56.9 Unspecified convulsions (principal); K57.92 Diverticulitis of intestine, part unspecified, without perforation or abscess without bleeding; R10.9 Unspecified abdominal pain; E86.0 Dehydration; E66.9 Obesity, unspecified; R74.0 Nonspecific elevation of levels of transaminase and lactic acid dehydrogenase [LDH]; R73.09 Other abnormal glucose; N39.0 Urinary tract infection, site not specified
CPT/HCPCS: 36415; 70450; 70553; 71045; 74177; 80048; 80053; 80076; 80299; 80307; 80329; 81003; 81025; 82140; 82607; 82746; 83690; 84443; 85025; 86039; 86592; 86803; 87040; 87340; 95819; 99285; A9585; J1165